=== PATIENT | female | born 1980 | race Caucasian/White ===

== ENCOUNTER 2020-06-01 14:23 | Emergency (ER) | payer MEDICAID ==
[2020-06-01 15:06] LABS: ABSOLUTE EOSINOPHILS # (AUTO) 0.1 10^3/uL (0.0-0.6); ABSOLUTE LYMPHOCYTES (AUTO) 2.5 10^3/uL (0.5-4.7); ABSOLUTE MONOCYTES (AUTO) 0.8 10^3/uL (0.1-1.4); BASOPHILS % (AUTO) 0.4 % (0-2); HEMATOCRIT 39.4 % (36.0-47.0); HEMOGLOBIN 13.9 g/dL (12.0-15.5); LYMPHOCYTES % (AUTO) 24.1 % (13-45); MEAN CORPUSCULAR HEMOGLOBIN 32.6 pg (27.0-33.4); MEAN CORPUSCULAR HGB CONC 35.3 g/dL (32.0-36.0); MEAN CORPUSCULAR VOLUME 92 fl (80-97); MONOCYTES % (AUTO) 7.4 % (3-13); PLATELET COUNT 234 10^3/uL (150-450); RED BLOOD COUNT 4.26 10^6/uL (3.72-5.28); RED CELL DISTRIBUTION WIDTH 12.8 % (11.5-14.0); SEGMENTED NEUTROPHILS % (AUTO) 67.1 % (42-78); TOTAL CELLS COUNTED % (AUTO) 100 %; WHITE BLOOD COUNT 10.5 10^3/uL (4.0-10.5)
[2020-06-01 15:11] LABS: APPEARANCE,URINE CLEAR; BILIRUBIN,URINE NEGATIVE (NEGATIVE); COLOR,URINE COLORLESS; GLUCOSE, URINE NEGATIVE (NEGATIVE); KETONES,URINE NEGATIVE (NEGATIVE); LEUKOCYTE ESTERASE,URINE NEGATIVE (NEGATIVE); NITRITE,URINE NEGATIVE (NEGATIVE); PROTEIN,URINE NEGATIVE (NEGATIVE); URINE SPECIFIC GRAVITY 1.001; UROBILINOGEN,URINE NEGATIVE mg/dL (<2.0)
[2020-06-01 15:19] LABS: ALBUMIN 4.4 g/dL (3.5-5.0); ALKALINE PHOSPHATASE 37 U/L (38-126); ANION GAP 6 (5-19); ASPARTATE AMINO TRANSFERASE 25 U/L (14-36); BILIRUBIN,DIRECT 0.2 mg/dL (0.0-0.4); BILIRUBIN,TOTAL 0.8 mg/dL (0.2-1.3); BLOOD UREA NITROGEN 10 mg/dL (7-20); CALCIUM 9.5 mg/dL (8.4-10.2); CARBON DIOXIDE 30 mmol/L (22-30); CHLORIDE 99 mmol/L (98-107); GLUCOSE 94 mg/dL (75-110); POTASSIUM 4.4 mmol/L (3.6-5.0); TOTAL PROTEIN 6.8 g/dL (6.3-8.2)
[2020-06-01] MEDS ORDERED: NORMAL SALINE 1000 ML 1,000 ML IV ONE (15:44)
--- NOTE | 2020-06-01 15:46 | ER Document Report ---
ED Medical Screen (RME) - General Chief Complaint: Abdominal Pain Stated Complaint: ABDOMINAL PAIN Time Seen by Provider: 06/01/20 15:39 - HPI Notes: 06/01/20 15:45 40-year-old female to the emergency department with complaints of left upper quadrant abdominal pain and flank pain that began on Saturday, got a little bit better, and then returned this afternoon. She states she felt well this morning but then as she was getting out of the shower she had immediate intense abdominal pain. Denies any fevers or chills. Denies any nausea or vomiting. She does have a history of kidney stones. Denies seeing any blood in her urine. Brief exam in triage she has left-sided CVA tenderness and left upper quadrant abdominal pain. Noted labs. Will obtain CT. I performed a brief medical screening exam on the patient determined that the patient needs further evaluation and management by main side provider. I have placed initial orders to help expedite care. - Related Data Allergies/Adverse Reactions: No Known Allergies Allergy (Verified 06/01/20 15:36) Home Medications: TUMERIC. VITAMIN E. ONE A DAY. ZINC Past Medical History - Social History Chew tobacco use (# tins/day): No Frequency of alcohol use: Occasional Drug Abuse: None Physical Exam - Vital signs Vitals: Temp Pulse Resp BP Pulse Ox 98.1 F 76 18 129/102 H 100 06/01/20 14:31 06/01/20 14:31 06/01/20 14:31 06/01/20 14:31 06/01/20 14:31 Course - Vital Signs Vital signs: Temp Pulse Resp BP Pulse Ox 98.1 F 76 18 129/102 H 100 06/01/20 15:37 06/01/20 14:31 06/01/20 14:31 06/01/20 14:31 06/01/20 14:31 - Laboratory Result Diagrams: 06/01/20 14:40 06/01/20 14:40 Laboratory results interpreted by me: 06/01/20 06/01/20 14:40 14:40 Sodium 134.5 L Alkaline Phosphatase 37 L Urine Blood SMALL H
[2020-06-01] MEDS ORDERED: DICYCLOMINE HCL INJ 20 MG/2 ML AMPULE IM ONE (17:48)
--- NOTE | 2020-06-01 17:48 | ER Document Report ---
ED GI/ - General Chief Complaint: Abdominal Pain Stated Complaint: ABDOMINAL PAIN Time Seen by Provider: 06/01/20 15:39 Notes: CHIEF COMPLAINT: Abdominal pain HPI: 40-year-old female presenting with intermittent left-sided abdominal pain over the last 2 days. Patient states that 2 days ago she had some intermittent left-sided abdominal pain that felt like a squeezing or cramping sensation felt fine all day yesterday felt fine this morning then developed left-sided abdominal pain and cramping again today. No diarrhea. No vomiting. Has taken nothing for the pain. No fever. ROS: See HPI - all other systems were reviewed and are otherwise negative Constitutional: no fever Eyes: no drainage, no blurred vision ENT: no runny nose, no sore throat Cardiovascular: no chest pain Resp: no SOB, no cough GI: no vomiting, no diarrhea, + abdominal pain : no dysuria Integumentary: no rash Allergy: no hives Musculoskeletal: no extremity pain or swelling Neurological: no numbness/tingling, no weakness MEDICATIONS: I agree with the patient medications as charted by the RN. ALLERGIES: I agree with the allergies as charted by the RN. PAST MEDICAL HISTORY/PAST SURGICAL HISTORY: Reviewed and agree as charted by RN. SOCIAL HISTORY: Reviewed and agree as charted by RN. FAMILY HISTORY: No significant familial comorbid conditions directly related to patient complaint EXAM: Reviewed vital signs as charted by RN. CONSTITUTIONAL: Alert and oriented and responds appropriately to questions. Well-appearing; well-nourished HEAD: Normocephalic; atraumatic EYES: PERRL; Conjunctivae clear, sclerae non-icteric ENT: normal nose; no rhinorrhea; moist mucous membranes; pharynx without lesions noted, no uvula edema or deviation, no tonsillar hypertrophy, phonation normal NECK: Supple without meningismus; non-tender; no cervical lymphadenopathy, no masses CARD: RRR; no murmurs, no clicks, no rubs, no gallops; symmetric distal pulses RESP: Normal chest excursion without splinting or tachypnea; breath sounds clear and equal bilaterally; no wheezes, no rhonchi, no rales, pulse oximetry 98% on room air not hypoxic ABD/GI: Normal bowel sounds; non-distended; soft, mild tenderness in the left upper left lower quadrants on palpation, no rebound, no guarding; no palpable organomegaly or masses. BACK: The back appears normal and is non-tender to palpation, there is no CVA tenderness EXT: Normal ROM in all joints; non-tender to palpation; no cyanosis, no effusions, no edema SKIN: Normal color for age and race; warm; dry; good turgor; no acute lesions noted NEURO: Moves all extremities equally; Motor and sensory function intact PSYCH: The patient's mood and manner are appropriate. Grooming and personal hygiene are appropriate. MDM: 40-year-old female presenting for left-sided abdominal pain that is been fairly constant this afternoon. Initial screening labs via triage process showed normal CBC normal CMP normal urinalysis. Patient has had noncontrast CT imaging at this point, I have reviewed this and do not visualize a definitive kidney stone. Awaiting radiologist read. Will give patient Bentyl initially. - Related Data Allergies/Adverse Reactions: No Known Allergies Allergy (Verified 06/01/20 15:36) Home Medications: TUMERIC. VITAMIN E. ONE A DAY. ZINC Past Medical History - Social History Smoking Status: Current Every Day Smoker Chew tobacco use (# tins/day): No Frequency of alcohol use: Occasional Drug Abuse: None Family History: Reviewed & Not Pertinent Patient has homicidal ideation: No Physical Exam - Vital signs Vitals: Temp Pulse Resp BP Pulse Ox 98.1 F 76 18 129/102 H 100 06/01/20 14:31 06/01/20 14:31 06/01/20 14:31 06/01/20 14:31 06/01/20 14:31 Course - Re-evaluation Re-evalutation: 06/01/20 18:23 Patient still mildly uncomfortable through the left side of the abdomen. Lab work and CT imaging did not show acute abnormalities. I spoke with the patient at length about this. She has no right-sided pain suggesting appendicitis at this time. No history of ovarian cyst. There are no definitive identified masses on the CT. No inflammatory changes in the lower abdomen or left side of the abdomen identified. Patient is aware that disease process does change control specialist time. Her discomfort has been somewhat intermittent. Will place patient on a course of pain medication, medication for her stomach, have her return in 24 to 48 hours if pain continues or worsens. Patient will be given referral to DIRECTOR OPERATIONS BROADCAST and PCP. 06/01/20 18:37 Patient's blood pressure improved significantly as her pain has improved. 06/01/20 18:42 Further consideration given the location of the patient's pain although it is not specifically pelvic it is in the left lower quadrant, will obtain a pelvic ultrasound to evaluate blood flow to the left ovary prior to discharge 06/01/20 19:32 Ultrasound does not show evidence of torsion small right ovarian cyst, discharged to follow-up as previously indicated she has her own INFORMATION SYSTEMS ANALYST for follow-up - Vital Signs Vital signs: Temp Pulse Resp BP Pulse Ox 98.4 F 67 16 111/72 100 06/01/20 18:32 06/01/20 18:32 06/01/20 18:32 06/01/20 18:32 06/01/20 18:32 - Laboratory Result Diagrams: 06/01/20 14:40 06/01/20 14:40 Laboratory results interpreted by me: 06/01/20 06/01/20 14:40 14:40 Sodium 134.5 L Alkaline Phosphatase 37 L Urine Blood SMALL H Discharge - Discharge Clinical Impression: Acute left flank pain, Ovarian cyst, right Condition: Stable Disposition: HOME, SELF-CARE Additional Instructions: Your lab work did not show any acute abnormalities. Your CT imaging and ultrasound did not show any acute abnormalities other than a small right ovarian cyst. There is not a definitive reason found for your abdominal pain today. Fo llow-up with gastroenterology, primary care and your INFORMATION SYSTEMS ANALYST for further evaluation call for appointment. Medications have been called into your pharmacy do not drive if taking narcotics for pain. If you develop fever greater than 101 or uncontrolled pain at home return for reevaluation as discussed Prescriptions: Hydrocodone/Acetaminophen [Scipio 5-325 mg Tablet] 1 tab PO Q4 PRN #15 tablet PRN Reason: Pantoprazole Sodium [Protonix [address] Tablet] 20 mg PO DAILY #30 tablet. Diclofenac Sodium [Voltaren 50 Mg Tablet.Dr] 50 mg PO BID #20 tablet. Referrals: CARINA TUCKER MD [ACTIVE STAFF] - Follow up as needed ZOHREH HOLT MD [ACTIVE STAFF] - Follow up as needed
--- NOTE | 2020-06-01 17:54 | RADIOLOGY REPORT (SQ) ---
EXAM DESCRIPTION: CT ABD/PELVIS NO ORAL OR IV IMAGES COMPLETED DATE/TIME: 06/01/2020 5:36 pm REASON FOR STUDY: left flank pain, hematuria, eval kidney stone COMPARISON: None. TECHNIQUE: CT scan of the abdomen and pelvis performed without intravenous or oral contrast. Images reviewed with lung, soft tissue, and bone windows. Reconstructed coronal and sagittal MPR images revi ewed. All images stored on PACS. All CT scanners at this facility use dose modulation, iterative reconstruction, and/or weight based d osing when appropriate to reduce radiation dose to as low as reasonably achievable (ALARA). [facility]: Dose Right [facility]: CareDose [facility]: Dose Right [facility]: Teradose 4D [facility]: Smart C4M RADIATION DOSE: CT Rad equipment meets quality standard of care and radiation dose reduction techniq ues were employed. CTDIvol: 4.8 mGy. DLP: 230 mGy-cm.mGy. LIMITATIONS: Motion. FINDINGS: LOWER CHEST: No significant findings. No nodules or infiltrates. NON-CONTRASTED LIVER, SPLEEN, ADRENALS: Evaluation limited by lack of IV contrast. No identified sign ificant masses. PANCREAS: No masses. No peripancreatic inflammatory changes. GALLBLADDER: No identified stones by CT criteria. No inflammatory changes to suggest cholecystitis. RIGHT KIDNEY AND URETER: No suspicious masses. Assessment limited by lack of IV contrast. No signif icant calcifications. No hydronephrosis or hydroureter. LEFT KIDNEY AND URETER: No suspicious masses. Assessment limited by lack of IV contrast. No signifi cant calcifications. No hydronephrosis or hydroureter. AORTA AND RETROPERITONEUM: No aneurysm. No retroperitoneal masses or adenopathy. BOWEL AND PERITONEAL CAVITY: No obvious masses or inflammatory changes. No free fluid. APPENDIX: Not visualized. PELVIS, BLADDER, AND ABDOMINAL WALL:No abnormal masses. No free fluid. Bladder normal. BONES: No significant findings. OTHER: No other significant finding. IMPRESSION: NO SIGNIFICANT OR ACUTE PROCESS IN THE ABDOMEN OR PELVIS. COMMENT: Quality ID # [id number]: Final reports with documentation of one or more dose reduction techniques (e.g., Automated exposure control, adjustment of the mA and/or kV according to patient size, use of iterative reconstruction technique) TECHNICAL DOCUMENTATION: JOB ID: [id number] 2010 [employer]- All Rights Reserved Reading location - IP/workstation name: [email or web address]
[2020-06-01] MEDS ORDERED: HYDROCODONE/ACETAMINOPHEN 5-325 MG TABLET PO ONE (18:37)
--- NOTE | 2020-06-01 19:26 | RADIOLOGY REPORT (SQ) ---
EXAM DESCRIPTION: U/S NON OB PEL TV W/DOPPLER IMAGES COMPLETED DATE/TIME: 06/01/2020 7:18 pm REASON FOR STUDY: left pelvic pain COMPARISON: None. TECHNIQUE: Dynamic and static grayscale images acquired of the pelvis via transvaginal approach and recorded on PACS. Additional selected color Doppler and spectral images recorded. LIMITATIONS: None. FINDINGS: UTERUS: Contour normal. No mass. ENDOMETRIAL STRIPE: No focal or generalized thickening. No masses. CERVIX: No nabothian cysts. RIGHT OVARY AND DOPPLER: Normal size. Dominant follicle or small cyst 2.1 cm. No worrisome masses. Normal arterial vascular flow without evidence for torsion. LEFT OVARY AND DOPPLER: Normal size. No worrisome masses. Normal arterial vascular flow without evide nce for torsion. FREE FLUID: None noted. OTHER: No other significant finding. IMPRESSION: No evidence of ovarian torsion. Small cyst right ovary. TECHNICAL DOCUMENTATION: JOB ID: [id number] 2010 [employer]- All Rights Reserved Rev Reading location - IP/workstation name: [email or web address]
[2020-06-01 20:15] VITALS: BP 121/85
== END 2020-06-01 19:45 | disposition home or self-care (01) ==
LOC: ER 14:23
DX: N83.201 Unspecified ovarian cyst, right side (principal); R10.9 Unspecified abdominal pain; R10.2 Pelvic and perineal pain; F17.200 Nicotine dependence, unspecified, uncomplicated; Z79.899 Other long term (current) drug therapy
CPT/HCPCS: 36415; 74176; 76830; 80053; 81001; 81025; 83690; 85025; 93976; 99285

== ENCOUNTER 2020-06-12 15:48 | Emergency (ER) | payer MEDICAID ==
--- NOTE | 2020-06-12 16:10 | ER Document Report ---
ED Medical Screen (RME) - General Chief Complaint: Abdominal Pain Stated Complaint: LOW ABDOMINAL PAIN,SWELLING Time Seen by Provider: 06/12/20 16:02 Mode of Arrival: Ambulatory Information source: Patient Notes: 40-year-old female presented to ED for complaint of abdominal pain and pelvic pain. She states that she was seen about 2 weeks ago and they did a CAT scan due to her severe abdominal pain. She states the only thing different was some blood in the urine. She states they also told her when they did a pelvic exam that she had a ovarian cyst on the right side. She states she did not get an ultrasound. She states about 10 years ago she was seen in another state and was told that she had growth on her ovaries and she needed to be checked out for ovarian cancer. She states she never did follow-up with anybody and now she is very worried. She states the last several days her stomach has become very bloated. She states she does use a vapor cigarette drinks 1 beer several times a week and does not use any illicit drugs. Patient is alert oriented respirations regular nonlabored speaking in full sentences. She is very concerned about stability to her stomach with this abdominal and pelvic pain. I have greeted and performed a rapid initial assessment of this patient. A comprehensive ED assessment and evaluation of the patient, analysis of test results and completion of medical decision making process will be conducted by an additional ED providers. - Related Data Allergies/Adverse Reactions: No Known Allergies Allergy (Verified 06/01/20 15:36) Physical Exam - Vital signs Vitals: Temp Pulse Resp BP Pulse Ox 98.8 F 90 16 118/79 98 06/12/20 16:00 06/12/20 16:00 06/12/20 16:00 06/12/20 16:00 06/12/20 16:00 Course - Vital Signs Vital signs: Temp Pulse Resp BP Pulse Ox 98.8 F 90 16 118/79 98 06/12/20 16:00 06/12/20 16:00 06/12/20 16:00 06/12/20 16:00 06/12/20 16:00
[2020-06-12 16:42] LABS: ABSOLUTE EOSINOPHILS # (AUTO) 0.1 10^3/uL (0.0-0.6); ABSOLUTE LYMPHOCYTES (AUTO) 1.8 10^3/uL (0.5-4.7); ABSOLUTE MONOCYTES (AUTO) 1.2 10^3/uL (0.1-1.4); ABSOLUTE NEUT (AUTO) 7.4 10^3/uL (1.7-8.2); BASOPHILS % (AUTO) 0.1 % (0-2); EOSINOPHILS % (AUTO) 0.6 % (0-6); HEMATOCRIT 37.7 % (36.0-47.0); LYMPHOCYTES % (AUTO) 17.6 % (13-45); MEAN CORPUSCULAR HEMOGLOBIN 31.7 pg (27.0-33.4); MEAN CORPUSCULAR HGB CONC 34.4 g/dL (32.0-36.0); MEAN CORPUSCULAR VOLUME 92 fl (80-97); MONOCYTES % (AUTO) 11.5 % (3-13); PLATELET COUNT 199 10^3/uL (150-450); RED CELL DISTRIBUTION WIDTH 12.8 % (11.5-14.0); SEGMENTED NEUTROPHILS % (AUTO) 70.2 % (42-78); TOTAL CELLS COUNTED % (AUTO) 100 %; WHITE BLOOD COUNT 10.5 10^3/uL (4.0-10.5)
[2020-06-12] MEDS ORDERED: NORMAL SALINE 1000 ML 1,000 ML IV ONE (16:52)
[2020-06-12] MEDS ORDERED: DICYCLOMINE HCL 20 MG TABLET PO ONE (16:54)
--- NOTE | 2020-06-12 16:55 | ER Document Report ---
ED GI/ - General Chief Complaint: Abdominal Pain Stated Complaint: LOW ABDOMINAL PAIN,SWELLING Time Seen by Provider: 06/12/20 16:02 Primary Care Provider: [facility] [Provider Group] - Follow up tomorrow Mode of Arrival: Ambulatory Information source: Patient Notes: Patient presents complaining of abdominal pain for the past 3 days. Patient complains of pain all over her abdomen and feeling distended. Patient states distention started today. Patient reports diarrhea x6 episodes with diarrhea starting yesterday. Patient is currently on her menstrual cycle. Patient denies any urinary symptoms. Patient does report decrease in appetite. - HPI Patient complains to provider of: Abdominal pain, Diarrhea, Other - Abdominal distention. No: Vaginal discharge, Vomiting Onset: Other - 3 days Timing/Duration: Worse Quality of pain: Sharp Pain Level: 5 Location: Other - Generalized abdomen Vaginal bleeding (Compared to normal period): Similar Menstrual period history: denies: Associated symptoms: Diarrhea. denies: Constipation, Dysuria, Fever, Nausea, Urinary hesitancy, Urinary frequency, Urinary retention, Urinary urgency, Vomiting Exacerbated by: Denies Relieved by: Denies Similar symptoms previously: No Recently seen / treated by doctor: Yes - Related Data Allergies/Adverse Reactions: No Known Allergies Allergy (Verified 06/01/20 15:36) Past Medical History - General Information source: Patient - Social History Smoking Status: Current Every Day Smoker - Vaping Frequency of alcohol use: Occasional Drug Abuse: None Occupation: Retail Family History: Reviewed & Not Pertinent - Past Medical History Cardiac Medical History: Reports: Hx Heart Murmur Surgical Hx: Negative Review of Systems - Review of Systems Constitutional: No symptoms reported. denies: Fever, Recent illness EENT: No symptoms reported Cardiovascular: No symptoms reported. denies: Chest pain Respiratory: No symptoms reported. denies: Cough, Short of breath Gastrointestinal: Abdominal pain, Diarrhea, Poor appetite. denies: Nausea, Vomiting Genitourinary: No symptoms reported. denies: Dysuria, Flank pain Female Genitourinary: No symptoms reported, Vaginal bleeding - Normal menses Musculoskeletal: No symptoms reported Skin: No symptoms reported Hematologic/Lymphatic: No symptoms reported Neurological/Psychological: No symptoms reported Physical Exam - Vital signs Vitals: Temp Pulse Resp BP Pulse Ox 98.8 F 90 16 118/79 98 06/12/20 16:00 06/12/20 16:00 06/12/20 16:00 06/12/20 16:00 06/12/20 16:00 - Notes Notes: PHYSICAL EXAMINATION: GENERAL: Well-appearing and in no acute distress. HEAD: Atraumatic, normocephalic. EYES: sclera anicteric, conjunctiva are normal. ENT: nares patent. Moist mucous membranes. NECK: Normal range of motion, supple without lymphadenopathy LUNGS: CTAB and equal. No wheezes rales or rhonchi. HEART: Regular rate and rhythm without murmurs ABDOMEN: Abdomen distended, soft, generalized tenderness, normal bowel sounds, no guarding. EXTREMITIES: Normal range of motion, no pitting edema. No cyanosis. BACK: No CVA tenderness NEUROLOGICAL: Cranial nerves grossly intact. Normal speech. Normal gait. PSYCH: Normal mood, normal affect. SKIN: Warm, Dry, normal turgor, no rashes or lesions noted Course - Re-evaluation Re-evalutation: 06/12/20 18:10 Patient with abdominal distention with large amount of gas noted on x-ray. Patient has had multiple stools today, no concern for obstruction. Patient without any fever or leukocytosis. Patient with diffuse abdominal tenderness. Consulted with Dr. Avila regarding patient presentation and diagnostic evaluation. Recommends discussing with patient any concerns about any possible food allergies. Agrees with plan to treat symptomatically and refer to primary doctor for further management at this time. Patient presents with abdominal pain without signs of peritonitis or other life- threatening or serious etiology. Patient appears stable for discharge and has been instructed to return immediately if the symptoms worsen in any way. - Vital Signs Vital signs: Temp Pulse Resp BP Pulse Ox 98.8 F 90 16 118/79 98 06/12/20 16:00 06/12/20 16:00 06/12/20 16:00 06/12/20 16:00 06/12/20 16:00 - Laboratory Result Diagrams: 06/12/20 16:15 06/12/20 16:15 Laboratory results interpreted by me: 06/12/20 06/12/20 16:15 17:01 Sodium 135.9 L Urine Blood MODERATE H Labs- All tests 24 hr 06/12/20 06/12/20 06/12/20 16:15 16:15 16:15 WBC 10.5 RBC 4.10 Hgb 13.0 Hct 37.7 MCV 92 MCH 31.7 MCHC 34.4 RDW 12.8 Plt Count 199 Lymph % (Auto) 17.6 Bledsoe % (Auto) 11.5 Eos % (Auto) 0.6 Baso % (Auto) 0.1 Absolute Neuts (auto) 7.4 Absolute Lymphs (auto) 1.8 Absolute Monos (auto) 1.2 Absolute Eos (auto) 0.1 Absolute Basos (auto) 0.0 Seg Neutrophils % 70.2 Sodium 135.9 L Potassium 3.8 Chloride 103 Carbon Dioxide 23 Anion Gap 10 BUN 9 Creatinine 0.90 Est GFR ( Amer) > 60 Est GFR (MDRD) Non-Af > 60 Glucose 88 Calcium 8.6 Total Bilirubin 0.6 Direct Bilirubin 0.3 Neonat Total Bilirubin Not Reportable Neonat Direct Bilirubin Not Reportable Neonat Indirect Bili Not Reportable AST 21 ALT 13 Alkaline Phosphatase 41 Total Protein 6.5 Albumin 4.1 Lipase Serum HCG, Qual NEGATIVE Beta HCG, Quant Cancelled Total Beta HCG Cancelled Urine Color Urine Appearance Urine pH Ur Specific [place] Urine Protein Urine Glucose (UA) Urine Ketones Urine Blood Urine Nitrite Urine Bilirubin Urine Urobilinogen Ur Leukocyte Esterase Urine RBC (Auto) Urine Mucus (Auto) Urine Ascorbic Acid 06/12/20 06/12/20 16:15 17:01 WBC RBC Hgb Hct MCV MCH MCHC RDW Plt Count Lymph % (Auto) Bledsoe % (Auto) Eos % (Auto) Baso % (Auto) Absolute Neuts (auto) Absolute Lymphs (auto) Absolute Monos (auto) Absolute Eos (auto) Absolute Basos (auto) Seg Neutrophils % Sodium Potassium Chloride Carbon Dioxide Anion Gap BUN Creatinine Est GFR ( Amer) Est GFR (MDRD) Non-Af Glucose Calcium Total Bilirubin Direct Bilirubin Neonat Total Bilirubin Neonat Direct Bilirubin Neonat Indirect Bili AST ALT Alkaline Phosphatase Total Protein Albumin Lipase 121.7 Serum HCG, Qual Beta HCG, Quant Total Beta HCG Urine Color COLORLESS Urine Appearance CLEAR Urine pH 6.0 Ur Specific [place] 1.001 Urine Protein NEGATIVE Urine Glucose (UA) NEGATIVE Urine Ketones NEGATIVE Urine Blood MODERATE H Urine Nitrite NEGATIVE Urine Bilirubin NEGATIVE Urine Urobilinogen NEGATIVE Ur Leukocyte Esterase NEGATIVE Urine RBC (Auto) 0 Urine Mucus (Auto) RARE Urine Ascorbic Acid NEGATIVE Reviewed labs from previous ER visit - Diagnostic Test Radiology reviewed: Image reviewed, Reports reviewed - Reviewed CT scan and ultrasound from previous ER visit Discharge - Discharge Clinical Impression: Abdominal pain Qualifiers: Abdominal location: unspecified location Qualified Code(s): R10.9 - Unspecified abdominal pain Diarrhea Qualifiers: Diarrhea type: unspecified type Qualified Code(s): R19.7 - Diarrhea, unspecified Condition: Stable Disposition: HOME, SELF-CARE Instructions: Abdominal Pain ([facility]), Antispasmodics ([facility]), Diarrhea, Nonspecific ([facility]) Additional Instructions: Return immediately for any new or worsening symptoms Followup with your primary care provider, call tomorrow to make a followup appointment Follow-up with a intermediate card tender for any persistent problems Prescriptions: Dicyclomine HCl [Bentyl 20 mg Tablet] 20 mg PO QID PRN #20 tablet PRN Reason: Simethicone [Mylicon 80 mg Chewable Tablet] 80 mg PO QIDP PRN #20 tab.chew PRN Reason: Forms: Return to Work Referrals: [facility] [Provider Group] - Follow up tomorrow
[2020-06-12 17:00] LABS: ALBUMIN 4.1 g/dL (3.5-5.0); ALKALINE PHOSPHATASE 41 U/L (38-126); ANION GAP 10 (5-19); ASPARTATE AMINO TRANSFERASE 21 U/L (14-36); BILIRUBIN,DIRECT 0.3 mg/dL (0.0-0.4); BILIRUBIN,TOTAL 0.6 mg/dL (0.2-1.3); BLOOD UREA NITROGEN 9 mg/dL (7-20); CALCIUM 8.6 mg/dL (8.4-10.2); CARBON DIOXIDE 23 mmol/L (22-30); CHLORIDE 103 mmol/L (98-107); GLUCOSE 88 mg/dL (75-110); POTASSIUM 3.8 mmol/L (3.6-5.0); TOTAL PROTEIN 6.5 g/dL (6.3-8.2)
[2020-06-12 17:19] LABS: APPEARANCE,URINE CLEAR; BILIRUBIN,URINE NEGATIVE (NEGATIVE); COLOR,URINE COLORLESS; GLUCOSE, URINE NEGATIVE (NEGATIVE); KETONES,URINE NEGATIVE (NEGATIVE); LEUKOCYTE ESTERASE,URINE NEGATIVE (NEGATIVE); NITRITE,URINE NEGATIVE (NEGATIVE); PROTEIN,URINE NEGATIVE (NEGATIVE); URINE SPECIFIC GRAVITY 1.001; UROBILINOGEN,URINE NEGATIVE mg/dL (<2.0)
--- NOTE | 2020-06-12 17:28 | RADIOLOGY REPORT (SQ) ---
EXAM DESCRIPTION: ABDOMEN 2 VIEWS IMAGES COMPLETED DATE/TIME: 06/12/2020 5:21 pm REASON FOR STUDY: abd pain, abd distention COMPARISON: None. NUMBER OF VIEWS: Two views. TECHNIQUE: Supine and erect/decubitus radiographic images of the abdomen acquired. LIMITATIONS: None. FINDINGS: FREE AIR: None. No abnormal gas collections. LUNG BASES: Clear. BOWEL GAS PATTERN: Nonobstructive pattern. No dilated loops or air fluid levels. CALCIFICATIONS: No suspicious calcifications. SOFT TISSUES: No gross mass or suggestion of organomegaly. HARDWARE: None in the abdomen. BONES: No acute fracture. No worrisome bone lesions. OTHER: No other significant finding. IMPRESSION: NO RADIOGRAPHIC EVIDENCE FOR ACUTE ABDOMINAL DISEASE. TECHNICAL DOCUMENTATION: JOB ID: [id number] 2010 [employer]- All Rights Reserved Reading location - IP/workstation name: [email or web address]
--- NOTE | 2020-06-12 17:40 | RADIOLOGY REPORT (SQ) ---
EXAM DESCRIPTION: U/S NON OB PEL TV W/DOPPLER IMAGES COMPLETED DATE/TIME: 06/12/2020 5:26 pm REASON FOR STUDY: Left abdominal/pelvic pain. See HPI COMPARISON: 06/01/2020. TECHNIQUE: Dynamic and static grayscale images acquired of the pelvis via transvaginal approach and recorded on PACS. Additional selected color Doppler and spectral images recorded. LIMITATIONS: None. FINDINGS: UTERUS: Contour normal. No mass. ENDOMETRIAL STRIPE: No focal or generalized thickening. No masses. CERVIX: No nabothian cysts. RIGHT OVARY AND DOPPLER: Normal size. No worrisome masses. Normal arterial vascular flow without evid ence for torsion. LEFT OVARY AND DOPPLER: Ovary not visualized due to poor acoustic window. FREE FLUID: None noted. OTHER: No other significant finding. MEASUREMENTS: UTERUS: 3.3 x 3.9 x 7.3 cm. ENDOMETRIAL STRIPE: 2.9 mm. RIGHT OVARY: 2.3 x 2.8 x 3.1 cm. LEFT OVARY: Not visualized. IMPRESSION: LEFT OVARY NOT VISUALIZED. OTHERWISE UNREMARKABLE TRANSVAGINAL PELVIC ULTRASOUND. TECHNICAL DOCUMENTATION: JOB ID: [id number] [employer]- All Rights Reserved Rev-01/24 Reading location - IP/workstation name: [email or web address]
[2020-06-12] MEDS ORDERED: SIMETHICONE 80 MG TAB.CHEW PO ONE (17:50)
[2020-06-12 18:32] VITALS: BP 106/63
== END 2020-06-12 18:33 | disposition home or self-care (01) ==
LOC: ER 15:48
DX: R10.84 Generalized abdominal pain (principal); R19.7 Diarrhea, unspecified; R63.0 Anorexia; R14.0 Abdominal distension (gaseous); F17.290 Nicotine dependence, other tobacco product, uncomplicated
CPT/HCPCS: 99285; 96360; 36415; 83690; 84703; 85025; 80053; 81001; 74019; 76830; 93976; J3490; J7030